=== PATIENT | male | born 1980 | race Caucasian/White ===

== ENCOUNTER 2016-09-05 13:58 | Day surgery (SDC) | payer OTHER ==
[2016-09-05] VITALS (8 sets, daily range): BP systolic 119–129; BP diastolic 59–87; PULSE 59–69; RESP 11–19; O2SAT 97–98
[~2016-09-05] VITALS: Ht 168.9 cm; Wt 81.3 kg
[~2016-09-05 13:58] MED LIST: CeFAZolin Inj 2 GM in IV Premix 1 EACH IV ONE; Lactated Ringer's 1,000 ML IV SCH
[2016-09-05] MEDS ORDERED: Ondansetron 2 mg/mL 2 mL Inj ONE (13:59)
[2016-09-05] MEDS ORDERED: Dexamethasone 4 mg/mL Inj ONE (13:59)
[2016-09-05] MEDS ORDERED: Lidocaine PF 1% 30 mL Inj ONE (13:59)
[2016-09-05] MEDS ORDERED: fentaNYL-PF 50 mCg/mL 2 mL Inj ONE (13:59)
[2016-09-05] MEDS ORDERED: Propofol 10,000 mCg/mL 20 mL Inj ONE (13:59)
[2016-09-05] MEDS ORDERED: CeFAZolin Inj 2 gm / 50mL D5W IV ONE (14:09)
[2016-09-05] MEDS ORDERED: Lactated Ringer's 1,000 ML IV ONE (14:30)
[2016-09-05] MEDS ORDERED: NO HOME MEDICATIONS (14:38)
[2016-09-05] MEDS ORDERED: Lactated Ringer's 1,000 ML IV SCH (17:41)
[2016-09-05] MEDS ORDERED: Lactated Ringer's 500 ML IV PRN (17:41)
[2016-09-05] MEDS ORDERED: Phenylephrine 10,000 mCg/mL Inj IVPUSH PRN (17:45)
[2016-09-05] MEDS ORDERED: Ondansetron 2 mg/mL 2 mL Inj IVPUSH PRN ×2 (17:45)
[2016-09-05] MEDS ORDERED: EPHEDrine Sulfate 50 mg/mL Inj IVPUSH PRN (17:45)
[2016-09-05] MEDS ORDERED: fentaNYL-PF 50 mCg/mL 2 mL Inj IVPUSH PRN (17:45)
[2016-09-05] MEDS ORDERED: Dexamethasone 4 mg/mL Inj IVPUSH PRN (17:45)
[2016-09-05] MEDS ORDERED: HYDROmorphone 1 mg/mL Inj IVPUSH PRN (17:45)
[2016-09-05] MEDS ORDERED: MetoCLOpramide 5 mg/mL 2 mL Inj IVPUSH PRN ×2 (17:45)
--- NOTE | 2016-09-05 17:47 | PCM.DISURG ---
Surgical Discharge Instruction Date of Service September 05, 2016 Dates of Hospitalization Date of Hospital Admission Providers Admitting Physician: Primary Care Physician: Aaron Attending Physician: Omar Franco MD Discharge Diagnosis Discharge Diagnosis Right inguinal hernia Diet Discharge Diet: No restrictions Activity Discharge Activity-General: No lifting >10 pounds for 4-6 weeks Dressing and Incisional Care Dressing Care: Allow Steri Stripes to fall off, Remove outer dressing after 24 hrs Hygiene: May shower after (24 hours) Follow Up Plan Follow Up Plan In the general surgery [place] postoperative clinic in 2-3 weeks Call your provider for: Fever (over 101.5), Vomiting, Discharge @ incision, pus discharge Omar Franco MD September 05, 2016 17:47
--- NOTE | 2016-09-05 17:51 | PCM.HPANE ---
Patient Data Date of Service: September 05, 2016 (1640) Surgeon Admitting Provider: Attending Provider:Omar Franco MD Primary Care Physician:Aaron Other Provider:Kristal Ocasio Anesthesia Reason for Visit Right Inguinal Hernia Ht/WT & BMI Height (Feet): 5 Height (Inches): 6.5 Weight (Kilograms): 81.3 Body Mass Index 28.00 Allergies Coded Allergies: No Known Allergies (Unverified , 09/05/16) Past Anesthesia History Anesthesia History: Denies:: Abnormal Airway, Anesthesia Reactions, Difficult Intubation, Fam Anesthesia Reaction, Fam Malignant Hypertherm, Malignant Hyperthermia Diabetes History Hx Diabetes?: No MRSA MRSA: No Medications Hypertension Medication: No Home Meds Incl Beta Reed: No Reported Medications [No Home Medications] No Conflict Check 09/05/16 History History of ENT Problems?: No HEENT History: Denies:: Abnormal Airway Cataracts Difficult Intubation Dysphagia Glaucoma Hearing Problem Sinus Problem TMJ Denture Type: None Teeth Condition: Within Normal Limits Missing Teeth Hx of Heart Problems?: No Cardiovascular History: Denies:: AICD Abdominal Aortic Aneurism Atrial Fibrillation Edema Heart Murmur Hypertension Irregular Heartbeat Pacemaker Peripheral Vascular Rheumatic Fever Hx of Respiratory Problem?: No Respiratory History: Denies:: Asthma COPD Emphysema Oxygen Administration Pneumonia Tuberculosis Use of C-PAP Machine Hx Neurologic Problems?: No Neurological History: Denies:: Alzheimer's Disease CVA Headaches Multiple Sclerosis Parkinson's Disease Seizures TIA Hx of GI Problems?: Yes Other GI Pertinent History: right inguinal hernia current admission problem Hx of Problems?: No Genitourinary History: Denies:: Kidney Stones Urinary Tract Infection Male Hx: Denies:: Prostate Problems Scrotal Mass Testicular Surgery Skin History: Denies:: History Skin Disorders? Pressure Ulcers Hx Musculoskeletal Problems?: No Musculoskeletal History: Denies:: Back Injury (occ low back pain) Fibromyalgia Joint Replacement Musculoskeletal Trauma Myasthenia Gravis Osteoarthritis Rheumatoid Arthritis Hx of Psycho/Social Problems?: No Psycho Social History: Denies:: Anxiety Hx Depression Hx Surgeries?: Yes (only dental (had some teeth pulled)) Hx Any Other Health Problems?: Yes Other History: Denies:: Cancer Thyroid Disease History Blood Transfusions: Positive for:: Accept Blood Products? Denies:: Blood Transfusions Hx Diabetes: No Hx Alcohol Use: YesAlcoholic Drinks Per Day: 6 pack of beer on weekendsHx Substance Use: Yes (marijuana use)Have You Smoked inLast 12 mo: No Stop/Bang S-Snoring: Do You Snore Loudly: Yes T-Tired: feel tired, fatigued: No O-Obsered: Observed not breath: No P-Blood Pressure: treated: No B- Body Mass Index > 35 kg/m2: No A- Age over 50: No N- Neck Large Circumference: No G- Gender Male: Yes BONITA Total Score: 2 BONITA Risk Assessment: Low Risk, <3 Yes Risk Assessment Category Category 1A: Patient has history of documented sleep apnea, and HAS NOT received any narcotic, sedative or anesthesia administration during this stay. Category 1B: Patient has history of documented sleep apnea, and HAS received any narcotic , sedative or anesthesia administration during this stay Category 2: Patient has SUSPECTED Obstructive Sleep Apnea, and HAS received any narcotic , sedative or anesthesia administration during this stay. Category 3: Patient has SUSPECTED Obstructive Sleep Apnea and HAS NOT received narcotic, sedative or anesthesia administration during this stay. Category 4: Outpatient in Procedural Areas with known sleep apnea or who screen positive for High Risk via the STOP/BANG questionnaire. Exam Exam Vital Signs Vital Signs Date Time Temp Pulse Resp B/P Pulse Ox O2 Delivery O2 Flow Rate FiO2 09/05/16 14:30 36.2 59 16 122/59 98 Room Air General Appearance: Alert, Oriented X3 HEENT/AIRWAY: MP 1 Lungs: Clear to Auscultation Heart: Exam Unremarkable Meds/Labs/Diagnostics Admission Meds Current Medications Cefazolin Sodium/ Dextrose 2 gm 2 gm STK-MED ONCE IV Last administered on 16:55; Start 09/05/16 at 14:09; Stop 09/05/16 at 14:13; Status DC Lactated Ringer's (Lr) 1,000 ml @ ud STK-MED ONCE IV Last administered on 09/05 14:30; Start 09/05/16 at 14:30; Stop 09/05/16 at 14:36; Status DC Plan Impression Patient chart reviewed, patient interviewed and anesthestic plan with risks, benefits, and alternatives discussed, and informed consent obtained. NPO per Anesth. Guidelines: Yes ASA Physical Status: ASA1 Normal Healthy Anesthetic Plan: GA Bene/Risks/Altern/Consents: Yes HP Complete Prior to Induction: Yes Isaías Perez MD September 05, 2016 17:51
--- NOTE | 2016-09-05 17:52 | PCM.SURGOP ---
Surgical Operative Report Date of Service: September 05, 2016 Pre Operative Diagnosis Right inguinal hernia Post Operative Diagnosis Same, direct Procedure: Right inguinal hernia repair with mesh Surgeon and Model And Dye Person: Surgeon: Omar Franco MD Assistants: Eduardo Elena PA-C Indication for Procedure 36-year-old man who presented with pain in the right groin, which was slightly more superior than a typical inguinal hernia location, associated with some swelling. His pain was aggravated by sitting or bending over. I could not appreciate a definite hernia on physical exam, so an ultrasound was obtained, which showed an inguinal hernia containing a loop of bowel. After discussion of risks and benefits, he agreed to proceed with right inguinal hernia repair with mesh. Findings: There was a very small direct defect, but it seemed unlikely that this could possibly contain a loop of bowel on ultrasound. There was no indirect hernia, and no hydrocele. Procedure Details After smooth induction of general anesthesia with an LMA, the patient was placed in the supine position, and was prepped and draped in wide sterile fashion. A procedural pause was performed according to the SCOAP checklist, and all were found to be in agreement. A transverse incision was made in the skin lines in the right groin. Dissection was carried out with electrocautery through the subcutaneous tissue. The superficial inferior epigastric vein was cauterized and divided. Keisha' s fascia was divided. The external oblique fascia was skeletonized down to the external inguinal ring. The external oblique fascia was opened sharply, taking care to avoid injury to the ilioinguinal nerve. The spermatic cord contents were encircled with a Rosanna drain. The inguinal floor was inspected. There was a very small direct hernia defect, just medial to the deep inguinal ring. The spermatic cord was explored. There was no evidence of indirect hernia or hydrocele. There was a small varicocele. A repair was then performed using the Bard 3 x 6" polypropylene mesh, which was cut to size. It was secured to the pubic tubercle, the shelving edge of the ilioinguinal ligament, the conjoined tendon. A slit was cut in the mesh to allow passage of the spermatic cord. The external oblique fascia was then closed over the mesh using a running 3-0 Vicryl suture. Keisha's fascia was closed with an interrupted 3-0 Vicryl suture. The skin incision was closed with a running 4-0 Monocryl subcuticular stitch. Steri-Strips and sterile dressings were applied. At the end the case all needle and sponge counts were correct 2. The patient was awakened from anesthesia without difficulty, and taken to the recovery room in satisfactory condition, having tolerated the procedure well. Complications There were no periprocedural complications identified. Surgical Specimen Removed: No Specimen sent to Pathology: Not applicable Anesthetic Plan: GA Grafts, Implants: Implants-See Implant Record Output, Estimated Blood Loss: 20 Blood Administration during banegas: No Drains: None Catheters: None Omar Franco MD September 05, 2016 17:52
--- NOTE | 2016-09-05 17:53 | PCM.ANEP1 ---
Post Anesthesia PACU Phase 1 Assessment Vital Signs 70, 14, 36.5, 119/67, 99% Vital Signs Date Time Temp Pulse Resp B/P Pulse Ox O2 Delivery O2 Flow Rate FiO2 09/05/16 14:30 36.2 59 16 122/59 98 Room Air Anesthetic Administered: GA Level of Alertness: Awake, talking REBOLLEDO's with Equal Strength: Yes Pain: No Nausea or Vomiting: No CV Function & Hydration Stable: Yes Airway Device: NONE Oxygen Delivery: Simple Mask Lungs: Clear to Auscultation Dermatome Level: Full Sensation Summary UNEVENTFUL GA PACU Phase 2 Assessment Complications: No Follow up Care: No Patient Instructions Provided: N/A Isaías Perez MD September 05, 2016 17:53
== END 2016-09-05 23:59 | disposition home or self-care (01) ==
LOC: SAS 13:58
PROVIDERS: ATTEND Student in an Organized Health Care Education/Training Program
DX: K40.90 Unilateral inguinal hernia, without obstruction or gangrene, not specified as recurrent (principal); Z87.891 Personal history of nicotine dependence; F12.90 Cannabis use, unspecified, uncomplicated
CPT/HCPCS: 49505; C1781; J0690; J1100; J1885; J2250; J2405; J3010; J7120